=== PATIENT | female | born 1965 | race Caucasian/White ===

== ENCOUNTER 2020-08-16 10:19 | Inpatient (IN) | payer BC ==
[2020-08-16 12:18] LABS: CHLORIDE,CL 101 mEq/L (98-106); SODIUM,NA 137 mEq/L (136-145)
[2020-08-16] MEDS ORDERED: Acetaminophen 325 MG Tab PO PRN (14:13)
[2020-08-16] MEDS ORDERED: Ondansetron 4 MG/2 ML SDV IV PRN (14:13)
[2020-08-16] MEDS ORDERED: Sodium Chloride 0.9% 1,000 ML IV SCH (14:30)
[2020-08-16] MEDS: cefTRIAXone 1 GM Vial IVPUSH SCH (15:05)
[2020-08-16] MEDS: Nicotine 14 MG/24 Hr Patch TRDERM SCH (15:05)
[2020-08-16] MEDS ORDERED: Enoxaparin 40 MG/0.4 ML Syringe SUBCUT SCH (20:00)
[2020-08-17] MEDS: Nicotine 14 MG/24 Hr Patch TRDERM SCH (07:36)
[2020-08-17] MEDS: Aspirin 81 MG Tab.EC PO SCH (07:36)
[2020-08-17 08:30] LABS: CHLORIDE,CL 107 mEq/L (98-106); SODIUM,NA 142 mEq/L (136-145)
--- NOTE | 2020-08-17 09:55 | PCM.PN ---
- General Info Date of Service: 08/17/20 Admission Dx/Problem (Free Text): UTI Subjective Update: Irene is a 55 yo female who was admitted to the hospital from the clinic by my colleague Jojo Funk for UTI. She presented to the clinic with cough and wanting to be tested for Covid. Did have recent UTI and had since developed fever. Was admitted and started on Rocephin. She reports she does feel improved this morning. Was afebrile through the night. She denies any urinary symptoms or abdominal pain. She has been afebrile since last night when she had low grade temp 100 deg F. She does continue to have nonproductive cough. O2 sats have been 91-93% on RA. She is a daily smoker and reports she is doing ok with the nicotine patch. She does not offer any additional complaints this morning. Functional Status: Reports: Pain Controlled, Tolerating Diet, Ambulating, Urinating. Denies: New Symptoms - Review of Systems General: Denies: Fever, Weakness, Fatigue, Malaise, Chills HEENT: Reports: No Symptoms Pulmonary: Reports: Cough. Denies: Shortness of Breath, Pleuritic Chest Pain, Sputum, Wheezing Cardiovascular: Reports: Dyspnea on Exertion. Denies: Chest Pain, Orthopnea, Edema, Lightheadedness Gastrointestinal: Reports: No Symptoms. Denies: Abdominal Pain, Decreased Appetite, Diarrhea, Nausea, Vomiting Genitourinary: Reports: No Symptoms. Denies: Dysuria, Frequency, Urgency Musculoskeletal: Reports: No Symptoms Skin: Reports: No Symptoms Neurological: Reports: No Symptoms. Denies: Confusion, Dizziness, Numbness, Tingling, Weakness Psychiatric: Reports: No Symptoms - Patient Data Vitals - Most Recent: Last Vital Signs Temp 97.3 F 08/17/20 08:00 Pulse 77 08/17/20 08:00 Resp 18 08/17/20 08:00 BP 127/62 08/17/20 08:00 Pulse Ox 93 L 08/17/20 08:00 Weight - Most Recent: 236 lb 11.2 oz Lab Results Last 24 Hours: Laboratory Results - last 24 hr 08/16/20 08/16/20 08/16/20 Range/Units 10:32 11:39 11:39 WBC 12.7 H (5.0-10.0) 10^3/uL RBC 5.38 (4.00-5.50) 10^6/uL Hgb 15.7 (12.0-16.0) g/dL Hct 46.1 (37.0-47.0) % MCV 85.7 (82.0-94.0) fL MCH 29.2 (27.0-32.0) pg MCHC 34.1 (33.0-38.0) g/dL RDW Coeff of [place] 13.8 (11.0-15.0) % Plt Count 200 (150-400) 10^3/uL Neut % (Auto) 79.3 (35-85) % Lymph % (Auto) 10.4 (10-55) % [place] % (Auto) 6.8 (0-16) % Eos % (Auto) 3.4 (0-5) % Baso % (Auto) 0.1 (0-3) % Neut # (Auto) 10.04 H (1.80-7.00) 10^3/uL Lymph # (Auto) 1.32 (1.00-4.80) 10^3/uL [place] # (Auto) 0.86 H (0.00-0.80) 10^3/uL Eos # (Auto) 0.43 (0.00-0.45) 10^3/uL Baso # (Auto) 0.01 10^3/uL Sodium 137 (136-145) mEq/L Potassium 3.9 (3.5-5.0) mEq/L Chloride 101 (98-106) mEq/L Carbon Dioxide 24 (21-32) mmol/L BUN 11 (7-18) mg/dL Creatinine 0.8 (0.6-1.0) mg/dL Est Cr Clr Drug Dosing TNP Estimated GFR (MDRD) > 60 (>=60) mL/min Glucose 86 (75-99) mg/dL Lactic Acid (0.4-2.0) mmol/L Calcium 8.5 (8.4-10.1) mg/dL Total Bilirubin 0.5 (0.0-1.0) mg/dL AST 11 L (15-37) U/L ALT 18 (12-78) U/L Alkaline Phosphatase 64 (46-116) U/L C-Reactive Protein 11.8 H (0.2-0.8) mg/dL Total Protein 7.2 (6.4-8.2) g/dL Albumin 3.0 L (3.4-5.0) g/dL Urine Color (YELLOW) Urine Appearance (CLEAR) Urine pH (4.5-8.0) Ur Specific [place] (1.003-1.020) Urine Protein (NEGATIVE) mg/dL Urine Glucose (UA) (NEGATIVE) mg/dL Urine Ketones (NEGATIVE) mg/dL Urine Occult Blood (NEGATIVE) Urine Nitrite (NEGATIVE) Urine Bilirubin (NEGATIVE) Urine Urobilinogen (0.2-1.0) EU/dL Ur Leukocyte Esterase (NEGATIVE) Urine RBC (0-5) /HPF Urine WBC (0-5) /HPF Ur Epithelial Cells (NOT SEEN) /HPF Amorphous Sediment (NOT SEEN) /HPF Urine Bacteria (NOT SEEN) /HPF Urinalysis Comment SARS CoV-2 RNA Rapid CELINA Negative (NEGATIVE) 08/16/20 08/16/20 08/17/20 Range/Units 11:39 11:39 07:56 WBC 7.3 (5.0-10.0) 10^3/uL RBC 4.91 (4.00-5.50) 10^6/uL Hgb 14.1 (12.0-16.0) g/dL Hct 43.0 (37.0-47.0) % MCV 87.6 (82.0-94.0) fL MCH 28.7 (27.0-32.0) pg MCHC 32.8 L (33.0-38.0) g/dL RDW Coeff of [place] 13.8 (11.0-15.0) % Plt Count 195 (150-400) 10^3/uL Neut % (Auto) 54.6 (35-85) % Lymph % (Auto) 26.9 (10-55) % [place] % (Auto) 9.9 (0-16) % Eos % (Auto) 8.5 H (0-5) % Baso % (Auto) 0.1 (0-3) % Neut # (Auto) 3.98 (1.80-7.00) 10^3/uL Lymph # (Auto) 1.96 (1.00-4.80) 10^3/uL [place] # (Auto) 0.72 (0.00-0.80) 10^3/uL Eos # (Auto) 0.62 H (0.00-0.45) 10^3/uL Baso # (Auto) 0.01 10^3/uL Sodium (136-145) mEq/L Potassium (3.5-5.0) mEq/L Chloride (98-106) mEq/L Carbon Dioxide (21-32) mmol/L BUN (7-18) mg/dL Creatinine (0.6-1.0) mg/dL Est Cr Clr Drug Dosing Estimated GFR (MDRD) (>=60) mL/min Glucose (75-99) mg/dL Lactic Acid 0.7 (0.4-2.0) mmol/L Calcium (8.4-10.1) mg/dL Total Bilirubin (0.0-1.0) mg/dL AST (15-37) U/L ALT (12-78) U/L Alkaline Phosphatase (46-116) U/L C-Reactive Protein (0.2-0.8) mg/dL Total Protein (6.4-8.2) g/dL Albumin (3.4-5.0) g/dL Urine Color Camilla (YELLOW) Urine Appearance Cloudy (CLEAR) Urine pH 5.5 (4.5-8.0) Ur Specific [place] 1.020 (1.003-1.020) Urine Protein 30 H (NEGATIVE) mg/dL Urine Glucose (UA) Negative (NEGATIVE) mg/dL Urine Ketones Trace H (NEGATIVE) mg/dL Urine Occult Blood Small H (NEGATIVE) Urine Nitrite Negative (NEGATIVE) Urine Bilirubin Negative (NEGATIVE) Urine Urobilinogen 2.0 H (0.2-1.0) EU/dL Ur Leukocyte Esterase Small H (NEGATIVE) Urine RBC 5-10 H (0-5) /HPF Urine WBC 5-10 H (0-5) /HPF Ur Epithelial Cells Few H (NOT SEEN) /HPF Amorphous Sediment Occasional H (NOT SEEN) /HPF Urine Bacteria Many H (NOT SEEN) /HPF Urinalysis Comment SARS CoV-2 RNA Rapid CELINA (NEGATIVE) 08/17/20 Range/Units 07:56 WBC (5.0-10.0) 10^3/uL RBC (4.00-5.50) 10^6/uL Hgb (12.0-16.0) g/dL Hct (37.0-47.0) % MCV (82.0-94.0) fL MCH (27.0-32.0) pg MCHC (33.0-38.0) g/dL RDW Coeff of [place] (11.0-15.0) % Plt Count (150-400) 10^3/uL Neut % (Auto) (35-85) % Lymph % (Auto) (10-55) % [place] % (Auto) (0-16) % Eos % (Auto) (0-5) % Baso % (Auto) (0-3) % Neut # (Auto) (1.80-7.00) 10^3/uL Lymph # (Auto) (1.00-4.80) 10^3/uL [place] # (Auto) (0.00-0.80) 10^3/uL Eos # (Auto) (0.00-0.45) 10^3/uL Baso # (Auto) 10^3/uL Sodium 142 (136-145) mEq/L Potassium 3.7 (3.5-5.0) mEq/L Chloride 107 H (98-106) mEq/L Carbon Dioxide 26 (21-32) mmol/L BUN 12 (7-18) mg/dL Creatinine 0.8 (0.6-1.0) mg/dL Est Cr Clr Drug Dosing 83.04 Estimated GFR (MDRD) > 60 (>=60) mL/min Glucose 93 (75-99) mg/dL Lactic Acid (0.4-2.0) mmol/L Calcium 8.4 (8.4-10.1) mg/dL Total Bilirubin (0.0-1.0) mg/dL AST (15-37) U/L ALT (12-78) U/L Alkaline Phosphatase (46-116) U/L C-Reactive Protein 5.9 H (0.2-0.8) mg/dL Total Protein (6.4-8.2) g/dL Albumin (3.4-5.0) g/dL Urine Color (YELLOW) Urine Appearance (CLEAR) Urine pH (4.5-8.0) Ur Specific [place] (1.003-1.020) Urine Protein (NEGATIVE) mg/dL Urine Glucose (UA) (NEGATIVE) mg/dL Urine Ketones (NEGATIVE) mg/dL Urine Occult Blood (NEGATIVE) Urine Nitrite (NEGATIVE) Urine Bilirubin (NEGATIVE) Urine Urobilinogen (0.2-1.0) EU/dL Ur Leukocyte Esterase (NEGATIVE) Urine RBC (0-5) /HPF Urine WBC (0-5) /HPF Ur Epithelial Cells (NOT SEEN) /HPF Amorphous Sediment (NOT SEEN) /HPF Urine Bacteria (NOT SEEN) /HPF Urinalysis Comment SARS CoV-2 RNA Rapid CELINA (NEGATIVE) Vladimir Results Last 24 Hours: Microbiology 08/16/20 11:39 Urine Culture - Preliminary Urine, Voided 08/16/20 11:39 Influenza Type A Antigen Screen - Final Nasopharyngeal Swab NEGATIVE INFLUENZA A VIRUS AG REFERENCE RANGE: NEGATIVE Influenza Type B Antigen Screen - Final NEGATIVE INFLUENZA B VIRUS AG REFERENCE RANGE: NEGATIVE Med Orders - Current: Current Medications Acetaminophen (Tylenol) 650 mg PO Q4H PRN PRN Reason: Pain (Mild 1-3)/fever Aspirin (Halfprin) 81 mg PO DAILY [facility] Last Admin: 08/17/20 07:36 Dose: 81 mg Documented by: Ceftriaxone Sodium (Rocephin) 1 gm IVPUSH Q24H [facility] Last Admin: 08/16/20 15:05 Dose: 1 gm Documented by: Nicotine (Habitrol) 14 mg TRDERM DAILY [facility] Last Admin: 08/17/20 07:36 Dose: 14 mg Documented by: Ondansetron HCl (Zofran) 4 mg IV Q6H PRN PRN Reason: Nausea/Vomiting Discontinued Medications Enoxaparin Sodium (Lovenox) 40 mg SUBCUT Q24H [facility] Sodium Chloride (Normal Saline) 1,000 mls @ 100 mls/hr IV ASDIRECTED [facility] Stop: 08/17/20 00:29 Last Admin: 08/16/20 15:05 Dose: 100 mls/hr Documented by: - Exam Quality Assessment: DVT Prophylaxis General: Alert, Oriented, No Acute Distress Neck: Supple Lungs: Clear to Auscultation, Normal Respiratory Effort, Decreased Breath Sounds (mildly diminished RLL) Cardiovascular: Regular Rate, Regular Rhythm GI/Abdominal Exam: Normal Bowel Sounds, Soft, Non-Tender, No Organomegaly, No Distention, No Abnormal Bruit, No Mass, Pelvis Stable Back Exam: Normal Inspection, Full Range of Motion. No: CVA Tenderness (L), CVA Tenderness (R) Extremities: Normal Inspection, Normal Range of Motion, Non-Tender, No Pedal Edema, Normal Capillary Refill Neurological: No New Focal Deficit Psy/Mental Status: Alert, Normal Affect, Normal Mood - Patient Data Lab Results Last 24 hrs: Laboratory Results - last 24 hr 08/16/20 08/16/20 08/16/20 Range/Units 10:32 11:39 11:39 WBC 12.7 H (5.0-10.0) 10^3/uL RBC 5.38 (4.00-5.50) 10^6/uL Hgb 15.7 (12.0-16.0) g/dL Hct 46.1 (37.0-47.0) % MCV 85.7 (82.0-94.0) fL MCH 29.2 (27.0-32.0) pg MCHC 34.1 (33.0-38.0) g/dL RDW Coeff of [place] 13.8 (11.0-15.0) % Plt Count 200 (150-400) 10^3/uL Neut % (Auto) 79.3 (35-85) % Lymph % (Auto) 10.4 (10-55) % [place] % (Auto) 6.8 (0-16) % Eos % (Auto) 3.4 (0-5) % Baso % (Auto) 0.1 (0-3) % Neut # (Auto) 10.04 H (1.80-7.00) 10^3/uL Lymph # (Auto) 1.32 (1.00-4.80) 10^3/uL [place] # (Auto) 0.86 H (0.00-0.80) 10^3/uL Eos # (Auto) 0.43 (0.00-0.45) 10^3/uL Baso # (Auto) 0.01 10^3/uL Sodium 137 (136-145) mEq/L Potassium 3.9 (3.5-5.0) mEq/L Chloride 101 (98-106) mEq/L Carbon Dioxide 24 (21-32) mmol/L BUN 11 (7-18) mg/dL Creatinine 0.8 (0.6-1.0) mg/dL Est Cr Clr Drug Dosing TNP Estimated GFR (MDRD) > 60 (>=60) mL/min Glucose 86 (75-99) mg/dL Lactic Acid (0.4-2.0) mmol/L Calcium 8.5 (8.4-10.1) mg/dL Total Bilirubin 0.5 (0.0-1.0) mg/dL AST 11 L (15-37) U/L ALT 18 (12-78) U/L Alkaline Phosphatase 64 (46-116) U/L C-Reactive Protein 11.8 H (0.2-0.8) mg/dL Total Protein 7.2 (6.4-8.2) g/dL Albumin 3.0 L (3.4-5.0) g/dL Urine Color (YELLOW) Urine Appearance (CLEAR) Urine pH (4.5-8.0) Ur Specific [place] (1.003-1.020) Urine Protein (NEGATIVE) mg/dL Urine Glucose (UA) (NEGATIVE) mg/dL Urine Ketones (NEGATIVE) mg/dL Urine Occult Blood (NEGATIVE) Urine Nitrite (NEGATIVE) Urine Bilirubin (NEGATIVE) Urine Urobilinogen (0.2-1.0) EU/dL Ur Leukocyte Esterase (NEGATIVE) Urine RBC (0-5) /HPF Urine WBC (0-5) /HPF Ur Epithelial Cells (NOT SEEN) /HPF Amorphous Sediment (NOT SEEN) /HPF Urine Bacteria (NOT SEEN) /HPF Urinalysis Comment SARS CoV-2 RNA Rapid CELINA Negative (NEGATIVE) 08/16/20 08/16/20 08/17/20 Range/Units 11:39 11:39 07:56 WBC 7.3 (5.0-10.0) 10^3/uL RBC 4.91 (4.00-5.50) 10^6/uL Hgb 14.1 (12.0-16.0) g/dL Hct 43.0 (37.0-47.0) % MCV 87.6 (82.0-94.0) fL MCH 28.7 (27.0-32.0) pg MCHC 32.8 L (33.0-38.0) g/dL RDW Coeff of [place] 13.8 (11.0-15.0) % Plt Count 195 (150-400) 10^3/uL Neut % (Auto) 54.6 (35-85) % Lymph % (Auto) 26.9 (10-55) % [place] % (Auto) 9.9 (0-16) % Eos % (Auto) 8.5 H (0-5) % Baso % (Auto) 0.1 (0-3) % Neut # (Auto) 3.98 (1.80-7.00) 10^3/uL Lymph # (Auto) 1.96 (1.00-4.80) 10^3/uL [place] # (Auto) 0.72 (0.00-0.80) 10^3/uL Eos # (Auto) 0.62 H (0.00-0.45) 10^3/uL Baso # (Auto) 0.01 10^3/uL Sodium (136-145) mEq/L Potassium (3.5-5.0) mEq/L Chloride (98-106) mEq/L Carbon Dioxide (21-32) mmol/L BUN (7-18) mg/dL Creatinine (0.6-1.0) mg/dL Est Cr Clr Drug Dosing Estimated GFR (MDRD) (>=60) mL/min Glucose (75-99) mg/dL Lactic Acid 0.7 (0.4-2.0) mmol/L Calcium (8.4-10.1) mg/dL Total Bilirubin (0.0-1.0) mg/dL AST (15-37) U/L ALT (12-78) U/L Alkaline Phosphatase (46-116) U/L C-Reactive Protein (0.2-0.8) mg/dL Total Protein (6.4-8.2) g/dL Albumin (3.4-5.0) g/dL Urine Color Camilla (YELLOW) Urine Appearance Cloudy (CLEAR) Urine pH 5.5 (4.5-8.0) Ur Specific [place] 1.020 (1.003-1.020) Urine Protein 30 H (NEGATIVE) mg/dL Urine Glucose (UA) Negative (NEGATIVE) mg/dL Urine Ketones Trace H (NEGATIVE) mg/dL Urine Occult Blood Small H (NEGATIVE) Urine Nitrite Negative (NEGATIVE) Urine Bilirubin Negative (NEGATIVE) Urine Urobilinogen 2.0 H (0.2-1.0) EU/dL Ur Leukocyte Esterase Small H (NEGATIVE) Urine RBC 5-10 H (0-5) /HPF Urine WBC 5-10 H (0-5) /HPF Ur Epithelial Cells Few H (NOT SEEN) /HPF Amorphous Sediment Occasional H (NOT SEEN) /HPF Urine Bacteria Many H (NOT SEEN) /HPF Urinalysis Comment SARS CoV-2 RNA Rapid CELINA (NEGATIVE) 08/17/20 Range/Units 07:56 WBC (5.0-10.0) 10^3/uL RBC (4.00-5.50) 10^6/uL Hgb (12.0-16.0) g/dL Hct (37.0-47.0) % MCV (82.0-94.0) fL MCH (27.0-32.0) pg MCHC (33.0-38.0) g/dL RDW Coeff of [place] (11.0-15.0) % Plt Count (150-400) 10^3/uL Neut % (Auto) (35-85) % Lymph % (Auto) (10-55) % [place] % (Auto) (0-16) % Eos % (Auto) (0-5) % Baso % (Auto) (0-3) % Neut # (Auto) (1.80-7.00) 10^3/uL Lymph # (Auto) (1.00-4.80) 10^3/uL [place] # (Auto) (0.00-0.80) 10^3/uL Eos # (Auto) (0.00-0.45) 10^3/uL Baso # (Auto) 10^3/uL Sodium 142 (136-145) mEq/L Potassium 3.7 (3.5-5.0) mEq/L Chloride 107 H (98-106) mEq/L Carbon Dioxide 26 (21-32) mmol/L BUN 12 (7-18) mg/dL Creatinine 0.8 (0.6-1.0) mg/dL Est Cr Clr Drug Dosing 83.04 Estimated GFR (MDRD) > 60 (>=60) mL/min Glucose 93 (75-99) mg/dL Lactic Acid (0.4-2.0) mmol/L Calcium 8.4 (8.4-10.1) mg/dL Total Bilirubin (0.0-1.0) mg/dL AST (15-37) U/L ALT (12-78) U/L Alkaline Phosphatase (46-116) U/L C-Reactive Protein 5.9 H (0.2-0.8) mg/dL Total Protein (6.4-8.2) g/dL Albumin (3.4-5.0) g/dL Urine Color (YELLOW) Urine Appearance (CLEAR) Urine pH (4.5-8.0) Ur Specific [place] (1.003-1.020) Urine Protein (NEGATIVE) mg/dL Urine Glucose (UA) (NEGATIVE) mg/dL Urine Ketones (NEGATIVE) mg/dL Urine Occult Blood (NEGATIVE) Urine Nitrite (NEGATIVE) Urine Bilirubin (NEGATIVE) Urine Urobilinogen (0.2-1.0) EU/dL Ur Leukocyte Esterase (NEGATIVE) Urine RBC (0-5) /HPF Urine WBC (0-5) /HPF Ur Epithelial Cells (NOT SEEN) /HPF Amorphous Sediment (NOT SEEN) /HPF Urine Bacteria (NOT SEEN) /HPF Urinalysis Comment SARS CoV-2 RNA Rapid CELNIA (NEGATIVE) Result Diagrams: 08/17/20 07:56 08/17/20 07:56 Vladimir Results Last 24 hrs: Microbiology 08/16/20 11:39 Urine Culture - Preliminary Urine, Voided 08/16/20 11:39 Influenza Type A Antigen Screen - Final Nasopharyngeal Swab NEGATIVE INFLUENZA A VIRUS AG REFERENCE RANGE: NEGATIVE Influenza Type B Antigen Screen - Final NEGATIVE INFLUENZA B VIRUS AG REFERENCE RANGE: NEGATIVE Sepsis Event Note - Evaluation Sepsis Screening Result: No Definite Risk - Focused Exam Vital Signs: Vital Signs Temp Temp Pulse Resp BP Pulse Ox 08/17/20 08:00 97.3 F 77 18 127/62 93 L 08/17/20 04:00 98.1 F 76 18 122/61 93 L 08/17/20 00:00 98.1 F 87 18 114/54 L 94 L - Problem List & Annotations (1) Pneumonitis SNOMED Code(s): 541353653 Code(s): J18.9 - PNEUMONIA, UNSPECIFIED ORGANISM Status: Acute Current V isit: Yes Annotation/Comment:: BLL (2) UTI (urinary tract infection) SNOMED Code(s): 12309958 Code(s): N39.0 - URINARY TRACT INFECTION, SITE NOT SPECIFIED Status: Acute Current Visit: Yes Qualifiers: Urinary tract infection type: site unspecified Hematuria presence: without hematuria Qualified Code(s): N39.0 - Urinary tract infection, site not speci fied - Problem List Review Problem List Initiated/Reviewed/Updated: Yes - My Orders Last 24 Hours: My Active Orders 08/16/20 14:13 Patient Status [ADT] Routine Oxygen Therapy [RC] .PRN Up ad Valerie [RC] .PRN Vital Signs [RC] 0000,0400,0800,1200,1600,2000 Acetaminophen [TylenoL] 650 mg PO Q4H PRN Ondansetron [Zofran] 4 mg IV Q6H PRN 08/16/20 14:14 Pulse Oximetry [RC] .PRN 08/16/20 14:45 Nicotine [Habitrol] 14 mg TRDERM DAILY 08/16/20 15:00 cefTRIAXone [Rocephin] 1 gm IVPUSH Q24H 08/16/20 Dinner Regular Diet [DIET] 08/17/20 08:00 Aspirin [Halfprin] 81 mg PO DAILY 08/17/20 09:30 Azithromycin [Zithromax] 500 mg Sodium Chloride 0.9% [Normal Saline (AdvBag)] 250 ml IV Q24H 08/18/20 07:00 BASIC METABOLIC PANEL,BMP [CHEM] DAILY C-REACTIVE PROTEIN [CHEM] DAILY CBC WITH AUTO DIFF [HEME] DAILY 08/19/20 07:00 BASIC METABOLIC PANEL,BMP [CHEM] DAILY C-REACTIVE PROTEIN [CHEM] DAILY CBC WITH AUTO DIFF [HEME] DAILY - Assessment Assessment:: BLL Pneumonitis UTI - Plan Plan:: Patient reports feeling better this morning. No urinary symptoms. Did have CT abdomen/pelvis given concern for recurrent UTI. Was negative for any stones or urologic findings, but did reveal BLL pneumonitis. Patient has continued nonproductive cough. O2 sats have been 91-93% on RA. Will add azithromycin in addition to Rocephin. Continue to encourage cough and deep breathing. Is a daily smoker. Continue with nicotine patch. WBC improved from 12.7 to 7.3. CRP down from 11.8 to 5.9. Labs otherwise stable. Will keep additional day for IV antibiotics. Anticipate discharge home tomorrow on oral antibiotics, as patient is feeling much better and labs improving.
[2020-08-17] MEDS: Azithromycin 500 MG in Sodium Chloride 0.9% 250 ML IV SCH (10:17)
[2020-08-17] MEDS: cefTRIAXone 1 GM Vial IVPUSH SCH (15:50)
[2020-08-18 07:49] LABS: CHLORIDE,CL 107 mEq/L (98-106); SODIUM,NA 140 mEq/L (136-145)
[2020-08-18] MEDS: Aspirin 81 MG Tab.EC PO SCH (08:29)
[2020-08-18] MEDS: Nicotine 14 MG/24 Hr Patch TRDERM SCH (08:30)
--- NOTE | 2020-08-18 08:44 | PCM.DCSUM1 ---
Discharge Summary - Hospital Course Free Text/Narrative:: Irene is a 55 year old female who presented to clinic with 3 day history of upper respiratory symptoms. Febrile. Had sinus congestion, body aches and cough. Was concerned about possible covid infection. Reported nausea and vomiting. Had previously been on 2 oral antibiotics for UTI. Covid test negative. Labs done, showed mild elevation of WBC and CRP. Urine positive. CT scan of abdomen and pelvis also done, negative for abdominal concerns. Shows pneumonitis. Admitted and started on IV antibiotics. Diagnosis: Stroke: No Modified Briscoe Scale: No Symptoms at All Modified Briscoe Scale Score: 0 - Discharge Data Discharge Date: 08/18/20 Discharge Disposition: Home, Self-Care 01 Condition: Good - Referral to Home Health Primary Care Physician: PCP None - Discharge Diagnosis/Problem(s) (1) Pneumonitis SNOMED Code(s): 628673097 ICD Code: J18.9 - PNEUMONIA, UNSPECIFIED ORGANISM Status: Acute Problem Details: BLL (2) UTI (urinary tract infection) SNOMED Code(s): 59184637 ICD Code: N39.0 - URINARY TRACT INFECTION, SITE NOT SPECIFIED Status: Acute Qualifiers: Urinary tract infection type: site unspecified Hematuria presence: without hematuria Qualified Code(s): N39.0 - Urinary tract infection, site not specified - Patient Summary/Data Complications: none Hospital Course: Patient is doing well. Denies shortness of breath. Has mild cough. No abdominal discomfort. Afebrile. Appetite is good. Labs show improvement of WBC, now normal. CRP down to 3 today. Urine culture shows diphtheroids. Exam normal. Discharge home on oral antibiotics. Hospital follow up with Dr. Mccoy in 2 weeks. - Patient Instructions Diet: Usual Diet as Tolerated Activity: As Tolerated - Discharge Plan *PRESCRIPTION DRUG MONITORING PROGRAM REVIEWED*: No *COPY OF PRESCRIPTION DRUG MONITORING REPORT IN PATIENT JULIA: No Prescriptions/Med Rec: Cefuroxime [Ceftin] 250 mg PO BID #20 tablet Nicotine [Habitrol] 14 mg TRDERM DAILY #30 patch Home Medications: Home Meds Aspirin [Halfprin] 81 mg PO DAILY 08/16/20 [History] Cefuroxime [Ceftin] 250 mg PO BID #20 tablet 08/18/20 [Rx] Nicotine [Habitrol] 14 mg TRDERM DAILY #30 patch 08/18/20 [Rx] Patient Handouts: Urinary Tract Infection, Adult, Community-Acquired Pneumonia, Adult Referrals: Adryan Mccoy MD [ED Physician] - (Follow up with Dr. Mccoy in 2 weeks) - Discharge Summary/Plan Comment DC Time >30 min.: No - General Info Date of Service: 08/18/20 Admission Dx/Problem (Free Text: UTI Functional Status: Reports: Pain Controlled, Tolerating Diet, Ambulating - Review of Systems General: Denies: Fever, Weakness, Fatigue, Malaise HEENT: Reports: No Symptoms Pulmonary: Reports: Cough. Denies: Shortness of Breath Cardiovascular: Denies: Chest Pain, Edema, Lightheadedness Gastrointestinal: Denies: Abdominal Pain, Nausea, Vomiting Genitourinary: Reports: No Symptoms Musculoskeletal: Reports: No Symptoms Skin: Reports: No Symptoms - Patient Data Vitals - Most Recent: Last Vital Signs Temp 97 F 08/18/20 04:00 Pulse 71 08/18/20 04:00 Resp 16 08/18/20 04:00 BP 118/67 08/18/20 04:00 Pulse Ox 94 L 08/18/20 04:00 Weight - Most Recent: 236 lb 11.2 oz Lab Results - Last 24 hrs: Laboratory Results - last 24 hr 08/18/20 08/18/20 Range/Units 07:00 07:00 WBC 8.4 (5.0-10.0) 10^3/uL RBC 4.90 (4.00-5.50) 10^6/uL Hgb 14.1 (12.0-16.0) g/dL Hct 43.2 (37.0-47.0) % MCV 88.2 (82.0-94.0) fL MCH 28.8 (27.0-32.0) pg MCHC 32.6 L (33.0-38.0) g/dL RDW Coeff of L[place] 14.2 (11.0-15.0) % Plt Count 210 (150-400) 10^3/uL Neut % (Auto) 49.4 (35-85) % Lymph % (Auto) 32.8 (10-55) % Desha % (Auto) 7.2 (0-16) % Eos % (Auto) 10.5 H (0-5) % Baso % (Auto) 0.1 (0-3) % Neut # (Auto) 4.14 (1.80-7.00) 10^3/uL Lymph # (Auto) 2.75 (1.00-4.80) 10^3/uL Desha # (Auto) 0.60 (0.00-0.80) 10^3/uL Eos # (Auto) 0.88 H (0.00-0.45) 10^3/uL Baso # (Auto) 0.01 10^3/uL Sodium 140 (136-145) mEq/L Potassium 4.2 (3.5-5.0) mEq/L Chloride 107 H (98-106) mEq/L Carbon Dioxide 26 (21-32) mmol/L BUN 17 (7-18) mg/dL Creatinine 0.7 (0.6-1.0) mg/dL Est Cr Clr Drug Dosing 94.90 mL/min Estimated GFR (MDRD) > 60 (>=60) mL/min Glucose 93 (75-99) mg/dL Calcium 8.4 (8.4-10.1) mg/dL C-Reactive Protein 3.1 H (0.2-0.8) mg/dL SOPHIA Results - Last 24 hrs: Microbiology 08/16/20 11:39 Aerobic Blood Culture - Preliminary Blood NO GROWTH AFTER 1 DAY Anaerobic Blood Culture - Preliminary NO GROWTH AFTER 1 DAY 08/16/20 11:39 Urine Culture - Preliminary Urine, Voided Med Orders - Current: Current Medications Acetaminophen (Acetaminophen 325 Mg Tab) 650 mg PO Q4H PRN PRN Reason: Pain (Mild 1-3)/fever Aspirin (Aspirin 81 Mg Tab.Ec) 81 mg PO DAILY [facility] Last Admin: 08/18/20 08:29 Dose: 81 mg Documented by: Ceftriaxone Sodium (Ceftriaxone 1 Gm Vial) 1 gm IVPUSH Q24H [facility] Last Admin: 08/17/20 15:50 Dose: 1 gm Documented by: Azithromycin 500 mg/ Sodium (Chloride) 250 mls @ 250 mls/hr IV Q24H [facility] Last Admin: 08/17/20 10:17 Dose: 250 mls/hr Documented by: Nicotine (Nicotine 14 Mg/24 Hr Patch) 14 mg TRDERM DAILY [facility] Last Admin: 08/18/20 08:30 Dose: 14 mg Documented by: Ondansetron HCl (Ondansetron 4 Mg/2 Ml Sdv) 4 mg IV Q6H PRN PRN Reason: Nausea/Vomiting Last Admin: 08/17/20 16:13 Dose: 4 mg Documented by: Discontinued Medications Enoxaparin Sodium (Enoxaparin 40 Mg/0.4 Ml Syringe) 40 mg SUBCUT Q24H [facility] Sodium Chloride (Normal Saline) 1,000 mls @ 100 mls/hr IV ASDIRECTED [facility] Stop: 08/17/20 00:29 Last Admin: 08/16/20 15:05 Dose: 100 mls/hr Documented by: - Exam General: Reports: Alert, Oriented HEENT: Reports: Mucous Membr. Moist/[place] Neck: Reports: Supple Lungs: Reports: Clear to Auscultation, Normal Respiratory Effort Cardiovascular: Reports: Regular Rate, Regular Rhythm GI/Abdominal Exam: Normal Bowel Sounds, Soft, Non-Tender Extremities: Normal Inspection, No Pedal Edema Skin: Reports: Warm, Dry Neurological: Reports: No New Focal Deficit
[2020-08-18] MEDS: Azithromycin 500 MG in Sodium Chloride 0.9% 250 ML IV SCH (09:24)
== END 2020-08-18 10:45 | disposition home or self-care (01) | DRG 463 ==
LOC: CC.FCMC 10:19 → UNDOADMIN 13:14 → CC.MS 13:14 → UNDOADMIN 14:13 → CC.MS 14:13
PROVIDERS: ADMIT Nurse Practitioner; ATTEND Family Medicine
DX: N39.0 Urinary tract infection, site not specified (principal); J18.9 Pneumonia, unspecified organism; Z79.82 Long term (current) use of aspirin; Z79.899 Other long term (current) drug therapy; Z20.822 Contact with and (suspected) exposure to COVID-19; Z88.2 Allergy status to sulfonamides; F17.210 Nicotine dependence, cigarettes, uncomplicated
CPT/HCPCS: 36415; 71046; 74176; 80048; 80053; 81001; 83605; 85025; 86140; 87040; 87086; 87804; A9270-GY; J0456; J0696; J2405; J7030; J7050; U0002